=== PATIENT | female | born 1950 | race Caucasian/White ===

== ENCOUNTER 2017-05-17 13:14 | Emergency (ER) | payer MEDICARE, BC ==
[2017-05-17 13:55] VITALS: BP 155/90
--- NOTE | 2017-05-17 14:38 | EDM.PDOC ---
ED HPI GENERAL MEDICAL PROBLEM - General Chief Complaint: General Stated Complaint: FELL IN DRIVEWAY Time Seen by Provider: 05/17/17 14:15 Source of Information: Reports: Patient History Limitations: Reports: No Limitations - History of Present Illness INITIAL COMMENTS - FREE TEXT/NARRATIVE: Saniya presents today with complaints of headache status post fall backward in her driveway. She reports she was pulled over backward by her dogs lead rope in her driveway. The fall was witnessed, she denies LOC. Onset: Today, Sudden Duration: Minutes: Location: Reports: Head Quality: Reports: Dull Severity: Mild Improves with: Reports: Rest Worsens with: Reports: None - Related Data Allergies Allergy/AdvReac Type Severity Reaction Status Date / Time nickel Allergy Itching Verified 05/17/17 13:55 Home Meds: Home Meds Levothyroxine [Synthroid] 50 mcg PO DAILY 05/17/17 [History] Losartan/Hydrochlorothiazide [Losartan-HCTZ 100-12.5 MG] 1 tab PO DAILY [History] atorvaSTATin [Lipitor] 10 mg PO DAILY 05/17/17 [History] Past Medical History HEENT History: Reports: Cataract, Impaired Vision Cardiovascular History: Reports: High Cholesterol BEHAVIORAL HEALTH TECH History: Reports: Neurological History: Reports: CVA, TIA Endocrine/Metabolic History: Reports: Hypothyroidism - Past Surgical History HEENT Surgical History: Reports: Oral Surgery GI Surgical History: Reports: Colonoscopy Social & Family History - Tobacco Use Smoking Status *Q: Never Smoker - Recreational Drug Use Recreational Drug Use: No ED ROS GENERAL - Review of Systems Review Of Systems: See Below Constitutional: Denies: Fever, Chills, Malaise, Weakness, Fatigue HEENT: Denies: Dental Pain, Ear Pain, Eye Pain, Hearing Loss, Throat Pain, Vertigo, Vision Change Respiratory: Denies: Shortness of Breath, Wheezing, Cough, Sputum, Hemoptysis Cardiovascular: Denies: Chest Pain, Blood Pressure Problem, Dyspnea on Exertion , Edema, Lightheadedness, Palpitations, Syncope Endocrine: Reports: No Symptoms GI/Abdominal: Reports: No Symptoms : Reports: No Symptoms Musculoskeletal: Denies: Neck Pain, Back Pain, Joint Pain, Joint Swelling, Muscle Pain, Muscle Stiffness Skin: Reports: Other (Small abrasion to posterior occiput, raised contusion. ). Denies: Cyanosis, Pallor, Diaphoresis, Dryness, Bruising, Rash, Erythema Neurological: Reports: Headache, Pre-Existing Deficit, Other (history of cerebellar bleed with generalized weakness, ambulates with cane.). Denies: Confusion, Dizziness, Numbness, Paresthesia, Seizure, Syncope, Tingling, Tremors , Trouble Speaking, Difficulty Walking, Weakness, Change in Speech, Gait Disturbance Psychiatric: Reports: No Symptoms Hematologic/Lymphatic: Reports: No Symptoms Immunologic: Reports: No Symptoms ED EXAM, GENERAL - Physical Exam Exam: See Below Free Text/Narrative:: Saniya presents today after fall while holding dog rope. She fell backward onto concrete in her driveway. Fall was witnessed by a man, he assisted her immediately. She denies nausea, change in vision, ability to ambulate. She does complain of mild headache. Exam Limited By: No Limitations General Appearance: Alert, WD/WN, No Apparent Distress Eye Exam: Bilateral Eye: EOMI, Normal Fundi, Normal Inspection, PERRL Ears: Normal External Exam, Normal Canal, Hearing Grossly Normal, Normal TMs Ear Exam: Bilateral Ear: Auricle Normal, Canal Normal, TM normal Nose: Normal Inspection, Normal Mucosa, No Blood Throat/Mouth: Normal Inspection, Normal Lips, Normal Teeth, Normal Gums, Normal Oropharynx, Normal Voice, No Airway Compromise Head: Normocephalic, Other (Small abrasion/contusion to scalp at posterior occiput. Tenderness with palpation. ). No: Facial Swelling, Facial Tenderness, Sinus Tenderness Neck: Normal Inspection, Supple, Non-Tender, Full Range of Motion Respiratory/Chest: No Respiratory Distress, Lungs Clear, Normal Breath Sounds, No Accessory Muscle Use, Chest Non-Tender Cardiovascular: Normal Peripheral Pulses, Regular Rate, Rhythm, No Edema, No Gallop, No Murmur, No Rub Peripheral Pulses: 2+: Radial (L), Radial (R), Dorsalis Pedis (L), Dorsalis Pedis (R) GI/Abdominal: Normal Bowel Sounds, Soft, Non-Tender, No Distention Back Exam: Normal Inspection, Full Range of Motion. No: CVA Tenderness (R), CVA Tenderness (L), Decreased Range of Motion, Muscle Spasm, Paraspinal Tenderness, Vertebral Tenderness Extremities: Normal Inspection, Normal Range of Motion, Non-Tender, No Pedal Edema, Normal Capillary Refill. No: Leg Pain Neurological: Alert, Oriented, CN II-XII Intact, Normal Cognition, No Motor/ Sensory Deficits, Other (No change to gait. ) Psychiatric: Normal Affect, Normal Mood Skin Exam: Warm, Dry, Normal Color, No Rash, Other (Raised contusion/abrasion to posterior occiput. ) Lymphatic: No Adenopathy Course - Vital Signs Last Recorded V/S: Last Vital Signs Temp 35.7 C 05/17/17 14:01 Pulse 81 05/17/17 14:01 Resp 16 05/17/17 14:01 BP 155/90 H 05/17/17 14:01 Pulse Ox 97 05/17/17 14:01 - Radiology Interpretation Free Text/Narrative:: Head CT report impression: No subacute territorial infarct or hemorrhage. Remote appearing infarcts. Patient will follow up with her primary care provider. - Re-Assessments/Exams Free Text/Narrative Re-Assessment/Exam: 05/17/17 14:46 We will obtain Head CT without contrast, monitor for signs of concussion. Departure - Departure Time of Disposition: 15:37 Disposition: Home, Self-Care 01 Condition: Good Clinical Impression: Fall, Contusion of occipital region of scalp - Discharge Information Instructions: Fall Prevention in the Home, [id number], Contusion Referrals: PCP,None [Primary Care Provider] - Forms: ED Department Discharge Additional Instructions: You suffered a fall and struck your head, contusion of your scalp. Your head CT was negative for bleeding or acute finding. You can use ice, and your excedrin for pain. Follow up with your primary provider for review of CT and any referral to neurology as directed. You have been provided a CD of your CT scan. Return or report to nearest Emergency room for worsening, issues or concerns. - Assessment/Plan Assessment:: Fall Contusion occipital region of scalp Plan: Head CT was negative for bleeding or acute finding. She can use ice, and your excedrin for pain. Follow up with her primary provider for review of CT and any referral to neurology as directed. She has been provided a CD of your CT scan.
--- NOTE | 2017-05-17 15:01 | CT ---
CT head without contrast Total DLP 753. Findings: Patchy hypodensity surrounding the periventricular white matter. Prior lacunar infarct righ t khan radiata and internal capsule on the left. No hemorrhage. There is subtle patellar atrophy. P ossible remote infarct right cerebellum versus chronic small vessel ischemic disease. Calvarium intac t. Impression: 1. No subacute territorial infarct or hemorrhage. 3. Remote appearing infarcts. If still concerned for acute infarct recommend MRI follow-up.
== END 2017-05-17 16:11 | disposition home or self-care (01) ==
LOC: JP.ED 13:14
DX: S00.03XA Contusion of scalp, initial encounter (principal); E78.00 Pure hypercholesterolemia, unspecified; E03.9 Hypothyroidism, unspecified; Z98.890 Other specified postprocedural states; Z79.899 Other long term (current) drug therapy; Z86.73 Personal history of transient ischemic attack (TIA), and cerebral infarction without residual deficits; Z91.09 Other allergy status, other than to drugs and biological substances; W01.198A Fall on same level from slipping, tripping and stumbling with subsequent striking against other object, initial encounter
CPT/HCPCS: 70450; 70450-26; 99284; 99284-25

== ENCOUNTER 2021-08-27 09:33 | Emergency (ER) | payer MEDICARE ==
--- NOTE | 2021-08-27 09:58 | EDM.PDOC ---
ED HPI GENERAL MEDICAL PROBLEM - General Chief Complaint: General Stated Complaint: MEDICAL FALL VIA NORTH Time Seen by Provider: 08/27/21 09:52 Source of Information: Reports: Patient, RN Notes Reviewed History Limitations: Reports: Physical Impairment - History of Present Illness INITIAL COMMENTS - FREE TEXT/NARRATIVE: 71-year-old female presents emergency department today via EMS services for fall at home. He has a history of CVA in the past uses a walker to ambulate she states this morning when she went to the bathroom lost her balance and the walker fell unfortunately she was so weak she was unable to get back up with the assistance of her . EMS services were called for transport. She states is been feeling weaker over the last couple days does have a history of urinary tract infections states she has had some discomfort in that area but no fevers no dysuria denies any injury no loss of consciousness no syncopal event, no family is present she does have a history of dementia Lower Back Pain Score (Numeric/FACES): 3 - Related Data Allergies Allergy/AdvReac Type Severity Reaction Status Date / Time nickel Allergy Itching Verified 08/27/21 09:37 Home Meds: Home Meds Levothyroxine [Synthroid] 50 mcg PO DAILY 05/17/17 [History] Losartan/Hydrochlorothiazide [Losartan-HCTZ 100-12.5 MG] 1 tab PO DAILY 05/17/17 [History] atorvaSTATin [Lipitor] 10 mg PO DAILY 05/17/17 [History] Past Medical History HEENT History: Reports: Cataract, Impaired Vision Cardiovascular History: Reports: High Cholesterol [employer] History: Reports: Neurological History: Reports: CVA, TIA Endocrine/Metabolic History: Reports: Hypothyroidism - Past Surgical History HEENT Surgical History: Reports: Oral Surgery GI Surgical History: Reports: Colonoscopy Social & Family History - Tobacco Use Tobacco Use Status *Q: Never Tobacco User - Recreational Drug Use Recreational Drug Use: No ED ROS GENERAL - Review of Systems Review Of Systems: See Below Constitutional: Reports: Weakness HEENT: Reports: No Symptoms Respiratory: Reports: No Symptoms Cardiovascular: Reports: No Symptoms GI/Abdominal: Reports: Abdominal Pain (Suprapubic pain) : Denies: Dysuria, Flank Pain ED EXAM, GENERAL - Physical Exam Exam: See Below Exam Limited By: No Limitations General Appearance: Alert, WD/WN, No Apparent Distress Respiratory/Chest: No Respiratory Distress, Lungs Clear, Normal Breath Sounds, No Accessory Muscle Use, Chest Non-Tender Cardiovascular: Regular Rate, Rhythm, No Murmur GI/Abdominal: Soft, Tender (Suprapubic area) Course - Vital Signs Last Recorded V/S: Last Vital Signs Temp 97.7 F 08/27/21 09:34 Pulse 95 08/27/21 14:14 Resp 16 08/27/21 13:18 BP 123/66 08/27/21 14:14 Pulse Ox 100 08/27/21 14:14 - Orders/Labs/Meds Orders: Active Orders 24 hr Category Date Time Status Regular Diet [DIET] Diet 08/27/21 Lunch Active Labs: Laboratory Tests 08/27/21 08/27/21 08/27/21 Range/Units 10:06 10:06 10:57 WBC 15.4 H (4.5-11.0) K/uL RBC 4.04 (3.30-5.50) M/uL Hgb 11.0 L (12.0-15.0) g/dL Hct 33.5 L (36.0-48.0) % MCV 83 (80-98) fL MCH 27 (27-31) pg MCHC 33 (32-36) % Plt Count 700 H (150-400) K/uL Sodium 132 L (140-148) mmol/L Potassium 2.8 L* (3.6-5.2) mmol/L Chloride 96 L (100-108) mmol/L Carbon Dioxide 22 (21-32) mmol/L Anion Gap 16.8 H (5.0-14.0) mmol/L BUN 17 (7-18) mg/dL Creatinine 0.6 (0.6-1.0) mg/dL Est Cr Clr Drug Dosing 66.05 mL/min Estimated GFR (MDRD) > 60 (>60) Glucose 108 H (74-106) mg/dL Calcium 7.9 L (8.5-10.1) mg/dL Urine Color Yellow (YELLOW) Urine Appearance Slightly cloudy A (CLEAR) Urine pH 7.0 (5.0-8.0) Ur Specific [place] 1.025 (1.008-1.030) Urine Protein 100 H (NEGATIVE) mg/dL Urine Glucose (UA) Negative (NEGATIVE) mg/dL Urine Ketones 80 H (NEGATIVE) mg/dL Urine Occult Blood Small H (NEGATIVE) Urine Nitrite Negative (NEGATIVE) Urine Bilirubin Negative (NEGATIVE) Urine Urobilinogen 0.2 (0.2-1.0) EU/dL Ur Leukocyte Esterase Negative (NEGATIVE) Urine RBC 5-10 H (0-5) Urine WBC 0-5 (0-5) Ur Epithelial Cells Few Amorphous Sediment Moderate Urine Bacteria Many Urine Mucus Moderate Meds: Medications Discontinued Medications Generic Name Dose Route Start Last Admin Trade Name Freq PRN Reason Stop Dose Admin Potassium Chloride 20 meq/ 100 mls @ 50 mls/hr 08/27/21 10:34 08/27/21 10:48 Premix IV 08/27/21 12:33 50 mls/hr ONETIME ONE Administration Potassium Chloride 40 meq 08/27/21 10:34 08/27/21 10:48 Potassium Chloride 20 Meq Tab.Er PO 08/27/21 10:35 40 meq ONETIME ONE Administration Departure - Departure Time of Disposition: 15:07 Disposition: Home, Self-Care 01 Condition: Poor Clinical Impression: Hypokalemia - Discharge Information Instructions: Weakness Referrals: PCP,None [Primary Care Provider] - Forms: ED Department Discharge Additional Instructions: Continue to use your walker, continue with your home services from [facility] call return to the emergency department worsening of symptoms please follow-up with your primary care in the next 3 to 5 days for reevaluation Care Plan Goals: [facility] PT/OT visit scheduled for 08/29/21. Sepsis Event Note (ED) - Evaluation Sepsis Screening Result: No Definite Risk - Focused Exam Vital Signs: Vital Signs Temp Pulse Resp BP Pulse Ox 08/27/21 14:14 95 123/66 100 08/27/21 13:18 91 16 159/84 H 99 08/27/21 12:41 96 149/72 H 08/27/21 11:26 84 170/99 H 99 08/27/21 10:22 87 16 143/76 H 100 08/27/21 09:34 97.7 F 90 18 169/98 H 98 - My Orders Last 24 Hours: My Active Orders 08/27/21 Lunch Regular Diet [DIET] - Assessment/Plan Last 24 Hours: My Active Orders 08/27/21 Lunch Regular Diet [DIET] Plan: Assessment Acuity = acute Site and laterality = hypokalemia Etiology = unknown Manifestations = none Location of injury = Home Lab values = WBC elevated 15.4 consistent leukocytosis of unclear significance sodium low at 2.9 consistent hypokalemia this is prior to replacement of 20 mEq IV and 40 mEq p.o. urinalysis unremarkable Plan She was able to ambulate and a walker with nursing staff discharge planning did come and assess placement as she has had a vulnerable adult filed on her she did review this with the county unfortunately there is no assisted living or senior care placement available for her at this time she does have home services with [facility] already set up she will be discharged back to family This note was dictated using [employer] voice recognition software please call with any questions on syntax or grammar.
[2021-08-27] MEDS ORDERED: Potassium Chloride 20 MEQ Tab.ER PO ONE (10:34)
[2021-08-27] MEDS ORDERED: Potassium Chloride 20 MEQ in Premix Bag 1 BAG IV ONE (10:34)
[2021-08-27 14:15] VITALS: BP 123/66; PULSE 95
== END 2021-08-27 15:55 | disposition home or self-care (01) ==
LOC: JP.ED 09:33
DX: E87.6 Hypokalemia (principal); E78.00 Pure hypercholesterolemia, unspecified; E03.9 Hypothyroidism, unspecified; Z91.048 Other nonmedicinal substance allergy status; Z79.899 Other long term (current) drug therapy
CPT/HCPCS: 36415; 80048; 81001; 85027; 96365; 96366; 99285; A9270; J3480